=== PATIENT | female | born 1940 | race Caucasian/White ===

== ENCOUNTER → 2024-01-03 10:47 | Outpatient (BNVA) | payer MEDICARE, SELFPAY | PROVIDERS: PCP Family Medicine; Referring Provider Family Medicine; Visit Provider Podiatrist | DX: B35.3 Tinea pedis (principal); L60.0 Ingrowing nail; B35.1 Tinea unguium; L60.3 Nail dystrophy; M79.675 Pain in left toe(s) | CPT/HCPCS: 11750; 99204 ==

== ENCOUNTER → 2024-01-16 12:57 | Outpatient (BNVA) | payer MEDICARE, SELFPAY | PROVIDERS: PCP Family Medicine; Referring Provider Family Medicine; Visit Provider Podiatrist | DX: B35.3 Tinea pedis (principal); L60.0 Ingrowing nail; B35.1 Tinea unguium; L60.3 Nail dystrophy; B37.9 Candidiasis, unspecified | CPT/HCPCS: 99214 ==

== ENCOUNTER → 2024-07-02 13:04 | Outpatient (BNVA) | payer MEDICARE, SELFPAY | PROVIDERS: PCP Family Medicine; Referring Provider Family Medicine; Visit Provider Podiatrist | DX: L60.3 Nail dystrophy (principal); B35.1 Tinea unguium; B35.3 Tinea pedis; L60.0 Ingrowing nail | CPT/HCPCS: 99213 ==

== ENCOUNTER → 2024-12-03 13:37 | Outpatient (BNVA) | payer MEDICARE, SELFPAY | PROVIDERS: PCP Family Medicine; Referring Provider Family Medicine; Visit Provider Podiatrist | DX: B35.3 Tinea pedis (principal); L60.0 Ingrowing nail; B35.1 Tinea unguium; L60.3 Nail dystrophy | CPT/HCPCS: 99213 ==